=== PATIENT | female | born 1995 | race Caucasian/White ===

== ENCOUNTER 2019-01-27 09:57 | Outpatient (REF) | payer BC, SELFPAY ==
--- NOTE | 2019-01-27 09:15 | PAPFT_PTH ---
PATIENT: Sasha Leong LOC: [facility] U#:[id number] AGE/SX: 23/F ROOM: RE01/27/[address]: Osito Mayberry : 1995 BED: DIS: 01/27/2019 SPEC #: [id number] RECD: 01/27/19 18:02 STATUS: OMERO REQ #: [id number] GLENN: 01/27/19 09:[address]: Osito Mayberry DEPT: [facility] Cytology RECD BY: Sue Cui Tissues: 1 - CX/ENDOCX FOR PAP SMEARS Procedures: PAP THIN PREP/UVM Screening HPV DNA PROBE Comments: [id number]
== END 2019-01-27 10:17 ==
LOC: NCHCN 09:57
PROVIDERS: PCP Nurse Practitioner Family; Visit Provider Nurse Practitioner Family
DX: Z12.4 Encounter for screening for malignant neoplasm of cervix (principal); Z11.51 Encounter for screening for human papillomavirus (HPV)
CPT/HCPCS: 88142; 87624

== ENCOUNTER 2019-04-15 09:46 | Outpatient (REF) | payer BC, SELFPAY ==
[2019-04-15 12:47] LABS: HCT 38.4 % (36.0-46.0); HGB 12.6 g/dL (12.0-15.5); Mean Corp. HGB Concentration 32.8 g/dL (32.0-36.0); Mean Corpuscular Hemoglobin 28.7 pg (27.0-33.0); Mean Corpuscular Volume 87.5 fL (80-95); Mean Platelet Volume 9.9 fL (8.0-11.0); Platelet Count 367 x1000/uL (130-400); RBC 4.39 m/cumm (4.00-5.20); RBC Distribution Width 12.1 % (11.7-14.6)
[2019-04-15 13:14] LABS: TSH (W/Ref FT4) 1.24 uIU/mL (0.36-3.74)
== END 2019-04-15 10:06 ==
LOC: NCHCN 09:46
PROVIDERS: PCP Nurse Practitioner Family; Visit Provider Nurse Practitioner Family
DX: R53.83 Other fatigue (principal); F41.8 Other specified anxiety disorders
CPT/HCPCS: 85027; 84443

== ENCOUNTER 2020-01-25 16:59 | Outpatient (REF) | payer BC, SELFPAY ==
[2020-01-30 11:30] LABS: Patient Race White; SARS-CoV-2 RNA Undetected (Undetected); SARS-CoV-2 Specimen Source Nasal
== END 2020-01-25 17:19 ==
LOC: NCHCN 16:59
PROVIDERS: PCP Nurse Practitioner Family; Visit Provider Nurse Practitioner Family
DX: R52 Pain, unspecified (principal)
CPT/HCPCS: U0003

== ENCOUNTER 2020-05-04 09:02 | Outpatient (REF) | payer BC, SELFPAY ==
--- NOTE | 2020-05-04 08:00 | SKI_PTH ---
PATIENT: Sasha Leong LOC: [facility] U#:[id number] AGE/SX: 25/F ROOM: RE05/04/[address]: Osito Mayberry : 1995 BED: DIS: 05/04/2020 SPEC #: [id number] RECD: 05/04/20 17:22 STATUS: OMERO RERenetta #: [id number] GLENN: 05/04/20 08:[address]: Osito Mayberry DEPT: Surgical Specimen RECD BY: Sue Cui Tissues: 1 - SKIN BIOPSY(SHAVE/PUNCH) 2 - SKIN BIOPSY(SHAVE/PUNCH) Procedures: SKIN LEVEL 4 Comments: [id number]
== END 2020-05-04 09:03 | disposition home or self-care (01) ==
LOC: NCHCN 09:02
PROVIDERS: PCP Nurse Practitioner Family; Visit Provider Nurse Practitioner Family
DX: D22.72 Melanocytic nevi of left lower limb, including hip (principal); D22.71 Melanocytic nevi of right lower limb, including hip
CPT/HCPCS: 88305

== ENCOUNTER 2021-03-14 13:07 | Outpatient (REF) | payer OTHER, SELFPAY ==
[2021-03-14 14:42] LABS: HCT 38.9 % (36.0-46.0); HGB 12.5 g/dL (11.2-15.7); MCH 28.4 pg (27.0-33.0); MCHC 32.1 % (32.0-36.0); MCV 88.4 fL (80-95); MPV 10.9 fL (8.0-11.0); Nucleated RBC 0 %; Platelet Count 181 10^3/uL (130-400); RDW 12.4 % (11.7-14.6); RDW-SD 40.9 fL; WBC 10.39 10^3/uL (4.4-10.8)
[2021-03-14 14:52] LABS: Mono Screening POSITIVE (Negative)
[2021-03-14 14:57] LABS: Absolute Monocyte Count 1.14 10^3/uL (0.1-0.8); Absolute Neutrophil Count 3.84 10^3/uL (1.2-6.7); Atypical Lymphocytes % 24; Bands % 4; Diff Comment Manual Differential; RBC Morphology Normal
[2021-03-14 15:02] LABS: ALT 108 U/L (14-59); AST 109 U/L (15-37); Albumin 3.6 g/dL (3.4-5.0); Alkaline Phosphatase 136 U/L (46-116); Bilirubin, Direct 0.3 mg/dL (0.0-0.2); Bilirubin, Total 0.6 mg/dL (0.2-1.0); Total Protein 7.3 g/dL (6.4-8.2)
[2021-03-15 16:52] LABS: COVID-19 RT-PCR UVMMC Result Negative (Negative)
== END 2021-03-14 13:08 | disposition home or self-care (01) ==
LOC: NCHCN 13:07
PROVIDERS: PCP Nurse Practitioner Family; Visit Provider Family Medicine
DX: J02.9 Acute pharyngitis, unspecified (principal); R53.83 Other fatigue; B34.9 Viral infection, unspecified; Z20.822 Contact with and (suspected) exposure to COVID-19
CPT/HCPCS: 80076; U0003; 85025; 86308

== ENCOUNTER 2022-02-11 21:00 | Outpatient (REF) | payer OTHER, SELFPAY ==
[2022-02-11 15:24] LABS: Abs Immature Grans 0.01 10^3/uL (0.0-0.06); Absolute Basophil Count 0.04 10^3/uL (0.0-0.2); Absolute Eosinophil Count 0.03 10^3/uL (0.0-0.7); Absolute Lymphocyte Count 1.71 10^3/uL (1.2-3.4); Absolute Monocyte Count 0.44 10^3/uL (0.1-0.8); Absolute Neutrophil Count 4.55 10^3/uL (1.2-6.7); Basophils % 0.6; Eosinophils % 0.4; HCT 36.8 % (36.0-46.0); HGB 12.1 g/dL (11.2-15.7); Immature Grans % 0.1; Lymphocytes % 25.2; MCH 28.5 pg (27.0-33.0); MCHC 32.9 % (32.0-36.0); MCV 87 fL (80-95); MPV 10.2 fL (8.0-11.0); Monocytes % 6.5; Neutrophils % 67.2; Platelet Count 297 10^3/uL (130-400); RBC 4.25 10^6/uL (3.93-5.22); RDW 12.5 % (11.7-14.6); RDW-SD 40.1 fL; WBC 6.78 10^3/uL (4.4-10.8)
[2022-02-11 15:49] LABS: ALT 18 U/L (14-59); AST 20 U/L (15-37); Albumin 4.1 g/dL (3.4-5.0); Alkaline Phosphatase 54 U/L (46-116); Anion Gap 6.6 mmol/L (3-11); BUN 6 mg/dL (7-18); Bilirubin, Total 0.7 mg/dL (0.2-1.0); CO2 29.4 mmol/L (21.0-32.0); CREATININE 0.7 mg/dL (0.55-1.02); Calcium 9.3 mg/dL (8.5-10.1); Chloride 102 mmol/L (98-107); Estimated GFR 123.78 (mL/min/1.73m2); Glucose 69 mg/dL (74-106); Potassium 3.9 mmol/L (3.5-5.1); Sodium 138 mmol/L (136-145); TSH (W/Ref FT4) 1.28 uIU/mL (0.36-3.74); Total Protein 7.2 g/dL (6.4-8.2)
[2022-02-11 16:33] LABS: Hemoglobin A1C 4.9 % (<5.7)
[2022-02-11 16:55] LABS: Iron 92 ug/dL (50-170); Total Iron Binding Capacity 437 ug/dL (250-450); Transferrin Sat 21 % (15-50)
== END 2022-02-11 21:01 | disposition home or self-care (01) ==
LOC: NCHCN 21:00
PROVIDERS: Visit Provider Nurse Practitioner Family
DX: R53.83 Other fatigue (principal); G43.909 Migraine, unspecified, not intractable, without status migrainosus
CPT/HCPCS: 80053; 83036; 83540; 83550; 84443; 85025

== ENCOUNTER 2022-05-11 12:52 | Emergency (ER) | payer BC, SELFPAY ==
[2022-05-11 12:56] VITALS: BP 117/77; PULSE 95; RESP 14; TEMP 36.2; O2SAT 97
[2022-05-11] MEDS: Ondansetron O.D.T. 4 MG TABEF PO (13:22)
[2022-05-11 13:25] LABS: Bilirubin Negative (Negative); Blood Small (Negative); Clarity Clear (Clear); Glucose Negative (Negative); Ketones Negative (Negative); Leukocyte Esterase Negative (Negative); Nitrite Negative (Negative); Urobilinogen 0.2 mg/dL (Up to 0.2)
[2022-05-11 13:32] LABS: Bacteria Many HPF (Negative); Crystals Negative HPF (Negative); Epithelial Cells Many HPF (Negative)
[2022-05-11 13:33] LABS: C & S Indicated? No/Sq. Contamination; Casts Negative LPF (Negative); Mucus Moderate (Negative)
[2022-05-11] MEDS: Normal Saline 1,000 ML 1000 ML IV (13:36)
--- NOTE | 2022-05-11 13:39 | W.ED.GENAD ---
Discharge Plan Disposition Patient Disposition: Home Condition: Improving Discharge Details Clinical Impression: Viral infection, Anxiety in acute stress reaction Primary Care Provider: KVNG TIDWELL ED Provider: Loki Del Rosario Home Meds and New Rx's Prescriptions: Continued multivitamin Tablet 1 tab PO DAILY Saccharomyces boulardii [Daily Probiotic (S. boulardii)] 250 mg capsule 250 mg PO BID Zafemy 150-35 mcg/24 hr patch weekly 1 patch transdermal QWEEK Qty: 9 1RF venlafaxine 37.5 mg capsule,extended release 24hr PO Patient Comments: TAKE ONE CAPSULE BY MOUTH EVERY DAY Discharge Instructions Instructions: Viral Syndrome (ED), Anxiety (ED) Additional Instructions: Continue to stay well-hydrated and get plenty of rest during viral illness. You may continue to use foju-jxi-ebmksdy medication that matches your symptoms. Please take antinausea medication as directed on bottle. If you develop any new or significant worsening of symptoms follow-up in the emergency department for reassessment otherwise follow-up with your primary care provider if not improving over the next week. Referrals: KVNG TIDWELL [Primary Care Provider] - (As needed for reassessment) Discharge Data Discharge Date/Time-TO BE ENTERED AT DEPARTURE: 05/11/22 15:26 Medical Decision Making Patient presenting to the emergency department for chief complaint of sore throat, nasal congestion, nausea vomiting low-grade fever headache. Patient does state other family members have been ill over the past week and she started with her symptoms yesterday. She does state today she started feeling ill and had episode of near syncope with tingly hands and circumoral. Patient does have history of anxiety/depression. Physical exam shows well-appearing 27-year-old female patient with stable vital signs, normal cardiac and respiratory exam, normal HEENT exam. Suspect viral illness and given timeframe will perform FLUVID testing. Given near syncope we will check patient's labs but at this time symptoms are not consistent with ACS PE or significant neurological event. I suspect given patient's history and the bilateral tingling that patient may have had a slight panic attack. Pending labs we will give patient Toradol, IV fluids, and Zofran Reviewed patient's labs and patient is not , unremarkable CBC, CMP within normal range, urinalysis shows no signs of worrisome infection, and patient is negative for COVID flu and RSV. Reassessed patient and she did state that she feels significantly better. Discussed further the episode of near syncope which upon further discussion does seem more clinically significant with acute anxiety reaction. Recommended patient to continue to stay well-hydrated at home, will give prescription for Zofran to use as needed, and did recommend outpatient monitoring of symptoms along with follow-up to primary care provider if not improving otherwise to return for new or worsening symptoms. After discussion of diagnosis and plan of care patient has no further needs, questions, or concerns and states clear understanding to return to the emergency department for any worsening symptoms. This documentation was generated using [employer] system, please disregard any oddities of phrase or misspellings. HPI General Mode of arrival: ambulatory. Date/Time Provider Initiated Documentation: 05/11/22 12:53. Limitations to Documentation: no limitations. Information obtained by: patient and RN notes reviewed. History of Present Illness 27 year old F presents to the emergency department with the chief complaint of Sore throat congestion nausea vomiting fever headache, described as moderate, with intensity rated at 6. Quality is described as aching, and is localized to the head. Patient reports no radiation. Patient started experiencing this day(s) (1) and it has been constant. No relieving factors improve symptom(s), No exacerbating factors reported . Patient notes no other symptoms.. Patient did receive the following treatments prior to arrival, none Related Data Home Medications Medication Instructions Recorded Confirmed Saccharomyces boulardii 250 mg 250 mg PO BID 02/20/21 05/11/22 capsule (Daily Probiotic (S. boulardii)) multivitamin 1 tab PO DAILY 02/20/21 05/11/22 norelgestromin 150 mcg-e.estradiol 1 patch transdermal QWEEK #9 04/21/22 05/11/22 35 mcg/24 hr weekly transderm patches patch (Zafemy) venlafaxine 37.5 mg mg PO 05/11/22 capsule,extended release 24 hr Previous Rx's Medication Instructions Recorded norelgestromin 150 mcg-e.estradiol 1 patch transdermal QWEEK #9 04/21/22 35 mcg/24 hr weekly transderm patches patch (Zafemy) Allergies Allergy/AdvReac Type Severity Reaction Status Date / Time gluten Allergy Verified 05/11/22 14:14 dicyclomine HCl [From Bentyl] AdvReac Mild Nausea Verified 02/20/21 08:24 lactose AdvReac Verified 05/11/22 14:14 General Stated Complaint: GenMedical GRZEGORZ: 3 Review of Systems Constitutional Constitutional: Reports chills, Reports fatigue, Reports fever(s), Reports headache(s), Reports lethargy, Reports malaise and Reports poor appetite ENT Ears, Nose, Mouth, and Throat: Reports headache(s), Reports nasal congestion and Reports sore throat Cardiovascular Cardiovascular: Denies chest pain, Denies syncope, Reports lightheadedness and Denies dyspnea Respiratory Respiratory: Reports cough and Denies dyspnea Gastrointestinal Gastrointestinal: Denies abdominal pain, Denies diarrhea, Reports nausea and Reports vomiting Musculoskeletal Musculoskeletal: Reports myalgias Integumentary/Breasts Skin/Breast: Denies rash Neurologic Neurologic: Denies syncope and Reports headache(s) Psychiatric Psychiatric: Reports anxiety Endocrine Endocrine: Reports fatigue PFSH All Active Problems (Updated 05/11/22 @ 14:50 by Loki Del Rosario NP) Viral infection (Acute) Anxiety in acute stress reaction (Acute) Encounter for contraceptive management (Acute) Depression (Chronic) Active Problem List Depression (Chronic) Social History Smoking/Tobacco Use Status: Never Smoking risk assessment performed?: Yes Alcohol Intake: never Drug use: Never Substance use type: does not use Do you feel safe in your relationship?: Yes Female Reproductive History Menstrual control method: none History History 0 Para Hx # Term Pregnancies Multiple births Hx # Pregnancies Ectopic pregnancies AB induced Hx Number of Living Children AB spontaneous Exam Const General: cooperative, comfortable and no acute distress Orientation: alert and awake HENMT Head: normal to inspection, normocephalic and atraumatic Ears: hearing grossly normal bilaterally and TM's normal bilaterally General nose exam: external nose normal Face and sinus: no erythema Mouth: oral mucosae normal, no drooling, no muffled voice and no trismus Throat: posterior oropharynx normal Neck Neck: normal visual inspection, full ROM, no lymphadenopathy, no meningeal signs, trachea midline and supple Resp Effort & Inspection: normal respiratory effort and able to speak in complete sentences Auscultation: clear to auscultation bilaterally Cardio Rate: regular rate Rhythm: regular rhythm Heart Sounds: S1 normal, S2 normal, normal S1 and S2, no click, no gallops, no murmurs and no rubs GI Inspection: normal to inspection Palpation: soft, not firm, no guarding, not rigid and nontender Skin General skin exam: no rashes or lesions noted and dry skin (warm) Neuro General: patient alert, patient awake, patient oriented x3, gait normal and moves all extremities Cognition: normal cognition Speech: speech normal Course Vital Signs Vital signs: Vital Signs Temperature 36.2 C L 05/11/22 12:56 Pulse 95 H 05/11/22 12:56 Respiratory Rate 14 05/11/22 12:56 Blood Pressure 117/77 05/11/22 12:56 Pulse Oximetry 97 05/11/22 12:56 Temperature 36.2 C L 05/11/22 12:56 Temperature Source Oral 05/11/22 12:56 Pulse 95 H 05/11/22 12:56 Respiratory Rate 14 05/11/22 12:56 Blood Pressure 117/77 05/11/22 12:56 Blood Pressure Position Sitting 05/11/22 12:56 Pulse Oximetry 97 05/11/22 12:56 Oxygen Delivery Method Room Air 05/11/22 12:56 Oxygen Flow Rate 0 05/11/22 12:56 Pain Level 1 05/11/22 12:56 Lab/Test Results Lab/Test Results: Laboratory Tests Range/Units 05/11/22 13:05 Urine Color (Yellow) Yellow Urine Clarity (Clear) Clear Urine pH (5-8) 7.0 Ur Specific [place] (1.005-1.025) 1.020 Urine Protein (Negative) mg/dL Negative Urine Ketones (Negative) mg/dL Negative Urine Blood (Negative) Small H Urine Nitrite (Negative) Negative Urine Bilirubin (Negative) Negative Urine Urobilinogen (Up to 0.2) mg/dL 0.2 Ur Leukocyte Esterase (Negative) Negative Urine RBC (0-2) HPF 3-5 H Urine WBC (0-5) HPF 3-5 Ur Epithelial Cells (Negative) HPF Many Urine Crystals (Negative) HPF Negative Urine Bacteria (Negative) HPF Many Urine Casts (Negative) LPF Negative Urine Mucus (Negative) Moderate Ur Culture Indicated? No/Sq. Contamination Urine Glucose (Negative) mg/dL Negative POC- Test(urine) Negative
[2022-05-11 13:45] LABS: Abs Immature Grans 0.02 10^3/uL (0.0-0.06); Absolute Basophil Count 0.06 10^3/uL (0.0-0.2); Absolute Eosinophil Count 0.03 10^3/uL (0.0-0.7); Absolute Lymphocyte Count 1.06 10^3/uL (1.2-3.4); Absolute Monocyte Count 0.46 10^3/uL (0.1-0.8); Absolute Neutrophil Count 5.87 10^3/uL (1.2-6.7); Basophils % 0.8; Eosinophils % 0.4; HCT 39.9 % (36.0-46.0); HGB 12.6 g/dL (11.2-15.7); Immature Grans % 0.3; Lymphocytes % 14.1; MCH 27.3 pg (27.0-33.0); MCHC 31.6 % (32.0-36.0); MCV 87 fL (80-95); MPV 9.5 fL (8.0-11.0); Monocytes % 6.1; Neutrophils % 78.3; Platelet Count 280 10^3/uL (130-400); RBC 4.61 10^6/uL (3.93-5.22); RDW 12.4 % (11.7-14.6); RDW-SD 39.6 fL
[2022-05-11] MEDS: Ketorolac 15 MG/ML VIAL IVP (13:53)
[2022-05-11 13:55] LABS: COVID-19 PCR Negative (Negative); Influenza A PCR Negative (Negative); Influenza B PCR Negative (Negative); RSV PCR Negative (Negative)
[2022-05-11 14:01] LABS: ALT 24 U/L (14-59); AST 21 U/L (15-37); Albumin 4.6 g/dL (3.4-5.0); Alkaline Phosphatase 72 U/L (46-116); Anion Gap 9.1 mmol/L (3-11); BUN 7 mg/dL (7-18); Bilirubin, Total 0.9 mg/dL (0.2-1.0); CO2 27.9 mmol/L (21.0-32.0); CREATININE 0.8 mg/dL (0.55-1.02); Calcium 9.6 mg/dL (8.5-10.1); Chloride 101 mmol/L (98-107); Glucose 86 mg/dL (74-106); Magnesium 1.9 mg/dL (1.8-2.4); Potassium 3.7 mmol/L (3.5-5.1); Sodium 138 mmol/L (136-145); Total Protein 8.2 g/dL (6.4-8.2)
[2022-05-11 14:01] LABS: Source Nasopharynx
[2022-05-11 15:17] VITALS: BP 103/65; PULSE 78; RESP 16; TEMP 37.1; O2SAT 99
== END 2022-05-11 15:26 | disposition home or self-care (01) ==
PROVIDERS: Emergency Provider Nurse Practitioner Family; PCP Nurse Practitioner Family
DX: F41.1 Generalized anxiety disorder (principal); F43.0 Acute stress reaction; B34.9 Viral infection, unspecified; Z20.822 Contact with and (suspected) exposure to COVID-19
CPT/HCPCS: 80053; 81025; 87637; 96361; 96374; 99284; 81003; 81015; 83735; 85025; J1885

== ENCOUNTER 2022-06-25 09:17 | Outpatient (REF) | payer BC, SELFPAY ==
--- NOTE | 2022-06-25 09:00 | PAPFT_PTH ---
PATIENT: Sasha Leong LOC: [facility] U#:[id number] AGE/SX: 27/F ROOM: RE06/25/[address]: Virginia Kerr NP : 1995 BED: DIS: 06/25/2022 SPEC #: [id number] RECD: 06/25/22 12:57 STATUS: OMERO REQ #: [id number] GLENN: 06/25/22 09:[address]: Virginia Kerr NP DEPT: [facility] Cytology RECD BY: Sue Cui ENTERED: 06/25/22 12:57 SP TYPE: PAPFT OTHR DR: KVNG TIDWELL Tissues: 1 - CX/ENDOCX FOR PAP SMEARS Procedures: PAP THIN PREP/UVM Screening Comments: [id number]
== END 2022-06-25 09:18 | disposition home or self-care (01) ==
LOC: LBN 09:17
PROVIDERS: PCP Nurse Practitioner Family; Visit Provider Nurse Practitioner Women's Health
DX: Z12.4 Encounter for screening for malignant neoplasm of cervix (principal)
CPT/HCPCS: 88142

== ENCOUNTER 2022-09-19 14:56 | Outpatient (REF) | payer BC, SELFPAY ==
[2022-09-19 16:04] LABS: Iron 68 ug/dL (50-170); Total Iron Binding Capacity 443 ug/dL (250-450); Transferrin Sat 15 % (15-50)
[2022-09-19 16:25] LABS: Vitamin D 25 Total 37.7 ng/mL (30-100)
[2022-09-19 16:34] LABS: Ferritin 26 ng/mL (8-252); Folate 18.1 ng/mL (8.6-20.0); Vitamin B12 237 pg/mL (193-986)
== END 2022-09-19 14:57 | disposition home or self-care (01) ==
LOC: NCHCN 14:56
PROVIDERS: PCP Nurse Practitioner Family; Visit Provider Registered Nurse
DX: R53.83 Other fatigue (principal)
CPT/HCPCS: 82306; 82607; 82728; 82746; 83540; 83550

== ENCOUNTER 2023-05-03 08:19 | Emergency (ER) | payer MEDICAID, SELFPAY ==
[2023-05-03 08:33] VITALS: BP 130/88; PULSE 99; RESP 18; TEMP 36.5; O2SAT 100
--- NOTE | 2023-05-03 08:36 | ED.GENADUL_ITS ---
HPI General Date/Time Provider Initiated Documentation: 05/03/23 08:35 . HPI Narrative: 28-year-old female presents with bodyaches headache gradual onset, earaches and sore throat since yesterday. Related Data Home Medications Medication Instructions Recorded Confirmed Saccharomyces boulardii 250 mg 250 mg PO BID 02/20/21 05/03/23 capsule (Daily Probiotic (S. boulardii)) multivitamin 1 tab PO DAILY 02/20/21 05/03/23 norelgestromin 150 mcg-e.estradiol 1 patch transdermal QWEEK #9 ea 06/25/22 05/03/23 35 mcg/24 hr weekly transderm patch (Zafemy) vitamin B complex (B 1 tab PO DAILY 04/07/23 05/03/23 Complex-Vitamin B12 tablet) Previous Rx's Medication Instructions Recorded norelgestromin 150 mcg-e.estradiol 1 patch transdermal QWEEK #9 ea 06/25/22 35 mcg/24 hr weekly transderm patch (Zafemy) Allergies Allergy/AdvReac Type Severity Reaction Status Date / Time gluten Allergy Other (See Verified 05/03/23 08:35 Comment) dicyclomine HCl [From Bentyl] AdvReac Mild Nausea Verified 05/03/23 08:35 lactose AdvReac Mild Other (See Verified 05/03/23 08:35 Comment) General Stated Complaint: RespSymp GRZEGORZ: 4 Review of Systems Narrative: Review of Systems Constitutional: negative Eyes: negative ENT: Headache earache sore throat Cardiovascular: negative Respiratory: negative Gastrointestinal: negative : negative Musculoskeletal: negative Skin: negative Neurologic: negative Psych: negative Exam Narrative Exam Narrative: Physical Examination General: alert, awake, cooperative, resting comfortably, no acute distress HEENT: normocephalic, atraumatic; PERRL, EOM intact, conjunctiva normal; no nasal discharge; moist mucous membranes, oral and pharyngeal mucosa normal, tolerating secretions; TMs clear bilaterally Neck: supple, trachea midline; full ROM Chest: normal to inspection Respiratory: normal respiratory effort, speaking in full sentences Cardiac: regular rate, regular rhythm, S1S2 intact, no murmurs rubs or gallops GI: abdomen soft, non-tender, non-distended; no palpable mass or hepatosplenomegaly Skin: no lesions, rashes or trauma appreciated Course Vital Signs Vital signs: Vital Signs Temperature 36.5 C 05/03/23 08:33 Pulse 99 H 05/03/23 08:33 Respiratory Rate 18 05/03/23 08:33 Blood Pressure 130/88 05/03/23 08:33 Pulse Oximetry 100 05/03/23 08:33 Temperature 36.5 C 05/03/23 08:33 Temperature Source Skin 05/03/23 08:33 Pulse 99 H 05/03/23 08:33 Respiratory Rate 18 05/03/23 08:33 Blood Pressure 130/88 05/03/23 08:33 Blood Pressure Position Sitting 05/03/23 08:33 Pulse Oximetry 100 05/03/23 08:33 Oxygen Delivery Method Room Air 05/03/23 08:33 Oxygen Flow Rate 0 05/03/23 08:33 Pain Level 8 05/03/23 08:33 Medical Decision Making 28-year-old female presents with gradual onset headache, congestion, sore throat, fatigue over the last day. Afebrile nontoxic speaking full sentences, not hypoxic. TMs clear bilaterally. High clinical suspicion for viral upper respiratory infection low suspicion for pneumonia. Trial of dexamethasone Home care instructions regarding ibuprofen and acetaminophen and fluid intake. Strict return precautions given. Quality:SDOH Health Related Social Needs: No Data to Display PFSH All Active Problems (Updated 05/03/23 @ 08:40 by Victor Manuel Del Real MD) Acute viral syndrome (Acute) Encounter for contraceptive management (Acute) Depression (Chronic) Social History (Updated 06/25/22 @ 10:05 by Virginia Kerr NP) Smoking/Tobacco Use Status: Never Smoking risk assessment performed?: Yes Alcohol Intake: never Drug use: Never Substance use type: does not use Sexually active: Yes Do you think of yourself as: straight/heterosexual Current gender identity: female Do you feel safe in your relationship?: Yes Female Reproductive History Menstrual control method: patch History History 0 Para Hx # Term Pregnancies Multiple births Hx # Pregnancies Ectopic pregnancies AB induced Hx Number of Living Children AB spontaneous Discharge Plan Disposition Disposition: Home Condition: Stable Discharge Details Chief Complaint: RespSymp Clinical Impression: Acute viral syndrome Primary Care Provider: Bernie Coyne ED Provider: Victor Manuel Del Real Home Meds and New Rx's Prescriptions: No Action multivitamin Tablet 1 tab PO DAILY Saccharomyces boulardii [Daily Probiotic (S. boulardii)] 250 mg capsule 250 mg PO BID norelgestromin-ethin.estradiol [Zafemy] 150-35 mcg/24 hr patch weekly 1 patch transdermal QWEEK Qty: 9 4RF vitamin B complex [B Complex-Vitamin B12] Tablet 1 tab PO DAILY Discharge Instructions Instructions: Upper Respiratory Infection (ED) Additional Instructions: Please continue with ibuprofen and/or acetaminophen at home for fevers. Ensure that you are staying hydrated. Follow-up close with your primary care physician.
[2023-05-03] MEDS: Dexamethasone 10 MG/ML VIAL PO (08:39)
== END 2023-05-03 08:49 | disposition home or self-care (01) ==
PROVIDERS: Emergency Provider Emergency Medicine; PCP Nurse Practitioner Family
DX: R51.9 Headache, unspecified (principal); B34.9 Viral infection, unspecified; J02.9 Acute pharyngitis, unspecified
CPT/HCPCS: 99283; J1100

== ENCOUNTER 2023-09-06 14:47 | Emergency (ER) | payer MEDICAID, SELFPAY ==
[2023-09-06 14:50] VITALS: BP 119/81; PULSE 100; RESP 18; TEMP 37; O2SAT 100
--- NOTE | 2023-09-06 16:30 | DI.RAD_ITS ---
Exam(s) XR CHEST 2V PA LATERAL EXAM: XR CHEST 2V PA LATERAL CLINICAL HISTORY: cough, sob TECHNIQUE: 2D digital imaging was performed. Two views. COMPARISON: No exams were available for comparison FINDINGS: HEART: Normal size. Aorta: Not dilated. PULMONARY VASCULATURE: Normal. LUNGS: Clear. PLEURAL SPACE: No pleural effusion or pneumothorax. BONE:Unremarkable for age. Soft tissues: Unremarkable. IMPRESSION: No acute abnormality. DATA REPOSITORY: RADIATION DOSE DELIVERED:
[2023-09-06 16:35] VITALS: BP 117/73; PULSE 83; RESP 18; TEMP 37.6; O2SAT 99
--- NOTE | 2023-09-06 17:39 | ED.GENADUL_ITS ---
Discharge Plan Disposition Patient Disposition: Home Condition: Stable Discharge Details Clinical Impression: Bronchitis due to COVID-19 virus Primary Care Provider: Unknown,Unknown ED Provider: Maira Luna Home Meds and New Rx's Prescriptions: Continued multivitamin Tablet 1 tab PO DAILY Saccharomyces boulardii [Daily Probiotic (S. boulardii)] 250 mg capsule 250 mg PO BID vitamin B complex [B Complex-Vitamin B12] Tablet 1 tab PO DAILY norelgestromin-ethin.estradiol [Xulane] 150-35 mcg/24 hr patch weekly 1 patch transdermal QWEEK Qty: 9 4RF Discharge Instructions Instructions: Acute bronchitis Additional Instructions: Continue to push fluids to keep well-hydrated drinking 6 to 8 glasses of water daily Can use gwfv-[id number]-vwmgegu ibuprofen and/or acetaminophen as directed for discomfort Your chest x-ray showed no signs of pneumonia. Your lungs are clear. Referrals: Unknown,Unknown [Primary Care Provider] - [facility] General Mode of arrival: ambulatory . Date/Time Provider Initiated Documentation: 09/06/23 15:17 . Limitations to Documentation: no limitations . Information obtained by: patient . HPI Narrative: Patient presents for evaluation of ongoing cough and shortness of breath. She states she tested positive for COVID on states her symptoms started on Thursday. She states last night she did not sleep well secondary to cough. She has had a poor appetite but is taking in good fluids. She has had no respiratory distress chest pain lightheadedness syncope rash or lesions. She has no unilateral leg swelling or history of DVT. There is been no recent travel. She is oxygenating 100% on room air with clear breath sounds bilaterally she is not tachycardic she is normotensive Related Data Home Medications Medication Instructions Recorded Confirmed Saccharomyces boulardii 250 mg 250 mg PO BID 02/20/21 05/03/23 capsule (Daily Probiotic (S. boulardii)) multivitamin 1 tab PO DAILY 02/20/21 05/03/23 vitamin B complex (B 1 tab PO DAILY 04/07/23 05/03/23 Complex-Vitamin B12 tablet) norelgestromin 150 mcg-e.estradiol 1 patch transdermal QWEEK #9 07/20/23 35 mcg/24 hr weekly transderm patches patch (Xulane) Previous Rx's Medication Instructions Recorded norelgestromin 150 mcg-e.estradiol 1 patch transdermal QWEEK #9 07/20/23 35 mcg/24 hr weekly transderm patches patch (Xulane) Allergies Allergy/AdvReac Type Severity Reaction Status Date / Time gluten Allergy Other (See Verified 09/06/23 14:52 Comment) dicyclomine HCl [From Bentyl] AdvReac Mild Nausea Verified 09/06/23 14:52 lactose AdvReac Mild Other (See Verified 09/06/23 14:52 Comment) General Stated Complaint: GenMedical GRZEGORZ: 3 Review of Systems All systems reviewed & are unremarkable except as noted in HPI and below Exam Narrative Exam Narrative: Well-appearing female of stated age in no acute distress head is atraumatic eyes nonicteric noninjected EOMs intact oral mucosa is moist neck is supple with no JVD skin is pink warm dry she is well-perfused. Breath sounds are clear bilaterally there is no coarse breath sounds wheezing or rails. Cardiovascular regular rate and rhythm no murmurs her abdomen benign her extremities are without edema moves all extremities skin with no rashes or lesions Course Vital Signs Vital signs: Vital Signs Temperature 37.0 C 09/06/23 14:50 Pulse 100 H 09/06/23 14:50 Respiratory Rate 18 09/06/23 14:50 Blood Pressure 119/81 09/06/23 14:50 Pulse Oximetry 100 09/06/23 14:50 Temperature 37.6 C H 09/06/23 16:35 Temperature Source Tympanic 09/06/23 16:35 Pulse 83 09/06/23 16:35 Respiratory Rate 18 09/06/23 16:35 Blood Pressure 117/73 09/06/23 16:35 Pulse Oximetry 99 09/06/23 16:35 Oxygen Delivery Method Room Air 09/06/23 16:35 Oxygen Flow Rate 0 09/06/23 16:35 Medical Decision Making 28-year-old female presents with cough and shortness of breath recently diagnosed with COVID her physical exam and vital signs are reassuring I will obtain chest x-ray just to evaluate for a possible pneumonia although I doubt. Wells criteria 0, PERC with low probability no further testing required Oral mucosas moist she is not tachycardic or hypotensive appears euvolemic I do not suspect any electrolyte abnormalities or alteration in her kidney function. No labs indicated at this time. Her chest x-ray :With no acute cardiopulmonary findings. She is stable and ready for discharge to home no further lab studies or diag nostics indicated at this time Medical Records Medical records reviewed: Yes I reviewed the patient's medical records. Quality:SDOH Health Related Social Needs: No Data to Display PFSH All Active Problems (Updated 09/06/23 @ 17:46 by Maira Luna NP) Bronchitis due to COVID-19 virus (Acute) Encounter for contraceptive management (Acute) Depression (Chronic) Social History Smoking/Tobacco Use Status: Never Smoking risk assessment performed?: Yes Alcohol Intake: never Drug use: Never Substance use type: does not use Sexually active: Yes Do you think of yourself as: straight/heterosexual Current gender identity: female Do you feel safe in your relationship?: Yes Female Reproductive History Menstrual control method: patch History History 0 Para Hx # Term Pregnancies Multiple births Hx # Pregnancies Ectopic pregnancies AB induced Hx Number of Living Children AB spontaneous
[2023-09-06 17:50] VITALS: BP 117/73; PULSE 83; RESP 15; RESP 18; TEMP 37.6; O2SAT 99
[2023-09-06 17:51] VITALS: BP 117/73; PULSE 83; RESP 15; TEMP 37.6; O2SAT 99
--- NOTE | 2023-09-06 18:37 | DI.VRAD_ITS ---
PROCEDURE INFORMATION: Exam: XR Chest Exam date and time: 09/06/2023 5:07 PM Age: 28 years old Clinical indication: Cough and shortness of breath; Patient HX: Cough, SOB TECHNIQUE: Imaging protocol: Radiologic exam of the chest. Views: 2 views. COMPARISON: No relevant prior studies available. FINDINGS: Lungs: Unremarkable. No consolidation. Pleural spaces: Unremarkable. No pleural effusion. No pneumothorax. Heart/Mediastinum: Unremarkable. No cardiomegaly. Bones/joints: Unremarkable. IMPRESSION: No acute findings. Dictated and Authenticated by: Diego Tracey MD. Ordering:DUANE Rao MD
== END 2023-09-06 17:51 | disposition home or self-care (01) ==
PROVIDERS: Emergency Provider Nurse Practitioner Acute Care
DX: U07.1 COVID-19 (principal); J20.8 Acute bronchitis due to other specified organisms
CPT/HCPCS: 99283; 71046

== ENCOUNTER 2023-09-23 18:57 | Outpatient (REF) | payer MEDICAID, SELFPAY ==
[2023-09-23 23:11] LABS: Bacteria Negative HPF (Negative); C & S Indicated? C&S Done As Ordered; Casts Negative LPF (Negative); Crystals Negative HPF (Negative); Epithelial Cells Rare HPF (Negative); Mucus Negative (Negative); RBC 0-2 HPF (0-2); WBC Negative HPF (0-5)
[2023-09-26 13:02] LABS: Bacterial Vaginosis (BV) Negative (Negative); Candida glabrata Negative (Negative); Candida species group Negative (Negative); Trichomonas vaginalis Negative (Negative)
== END 2023-09-23 18:58 | disposition home or self-care (01) ==
LOC: LBN 18:57
PROVIDERS: Visit Provider Physician Assistant Medical
DX: N89.8 Other specified noninflammatory disorders of vagina (principal); R30.0 Dysuria
CPT/HCPCS: 81513; 87481; 87661; 81015; 87086